=== PATIENT | male | born 1935 | race Caucasian/White ===

== ENCOUNTER 2019-03-08 17:45 | Emergency (ER) | payer MEDICARE ==
[2019-03-08] MEDS ORDERED: Tetracaine 0.5% OPHTH SOLN/PF 4 ML BOT ONE (18:44)
[2019-03-08] MEDS ORDERED: Fluorescein Opthalmic Strip ONE (18:44)
== END 2019-03-08 19:44 | disposition home or self-care (01) ==
LOC: MADERS 17:45
DX: H57.12 Ocular pain, left eye (principal); H00.16 Chalazion left eye, unspecified eyelid; E78.5 Hyperlipidemia, unspecified
CPT/HCPCS: 99283